=== PATIENT | male | born 1990 | race Two or more races ===

== ENCOUNTER 2025-07-22 01:49 | Emergency (ER) | payer MEDICAID, OTHER ==
[~2025-07-22] VITALS: Ht 162.6 cm; Wt 68.0 kg
[2025-07-22 01:49] VITALS: BP 110/60; PULSE 96; RESP 18; TEMP 98.3; O2SAT 98
--- NOTE | 2025-07-22 03:27 | ED.PDOC ---
History of Present Illness HPI Comments 34-year-old male who came to ER via EMS for alcohol intoxication. Patient is a poor informant. States he called the ambulance because he is intoxicated alcohol. No further information could be taken from him at this time of care Chief Complaint: ETOH Time Seen by MD: 03:26 Reviewed Notes: Nurses Notes Allergies: Coded Allergies: NO KNOWN ALLERGIES (Unverified , 07/22/25) Information Source: Patient Mode of Arrival: EMS Past Medical History PAST MEDICAL HISTORY: Pt Confused Surgical History: Pt Confused Family History Family History: Pt Confused Social History Smoker: Pt Confused Alcohol: Heavy Drugs: Pt Confused Lives In: Pt Confused Unable to Obtain due to: Other (Intoxicated with alcohol) Physical Exam General Appearance: No Apparent Distress, Normal HEENT: Normal ENT Inspection, Pharynx Normal, TMs Normal Neck: Full Range of Motion, Non-Tender, Normal, Normal Inspection Respiratory: Chest Non-Tender, Lungs Clear, No Accessory Muscle Use, No Respiratory Distress, Normal Breath Sounds Cardiovascular: No Edema, No JVD, No Murmur, No Gallop, Normal Peripheral Pulses, Regular Rate/Rhythm Breast Exam: Deferred Gastrointestinal: No Organomegaly, Non Tender, No Pulsatile Mass, Normal Bowel Sounds, Soft Genitalia: Deferred Pelvic: Deferred Rectal: Deferred Extremities: No calf tenderness, Normal capillary refill, Normal inspection, Normal range of motion, Non-tender, No pedal edema Musculoskeletal : Apperance: Normal Neurologic: Alert, stretch machine operator II-XII nml as Tested, No Motor Deficits, Normal Affect, Normal Mood, No Sensory Deficits Cerebellar Function: Normal Reflexes: Normal Skin: Dry, Normal Color, Warm Lymphatic: No Adenopathy Was a procedure done? Was a procedure done?: No Differential Dx Considerations may include: Alcohol intoxication, electrolyte imbalance, dehydration X-Ray, Labs, Meds, VS Vital Signs Date Time Temp Pulse Resp B/P (MAP) Pulse Ox O2 Delivery O2 Flow Rate FiO2 07/22/25 01:49 98.3 96 18 110/60 98 98.3 Lab Test 07/22/25 02:30 Range/Units Plasma/Serum Blood Alcohol 293.3 H <10 mg/dL Time of 1ST Reevaluation: 03:25 Reevaluation 1ST: Unchanged Patient Education/Counseling: Diagnosis, Treatment Family Education/Counseling: No Family Present SEPSIS Sepsis Screen Date sepsis recognized/suspect: Jul 22, 2025 Time Sepsis recognized/suspect: 0149 Recent Procedure: No On Antibiotic Therapy: No Respiratory Rate >20: No Heart Rate >90: No Temp<36 C (96.8 F) or >38.3 C: No SBP <90 or MAP <65 mmHG: No New Acute Mental Status Change: No Is the patient on CPAP, BIPAP,: No Vital Signs Date Time Temp Pulse Resp B/P (MAP) Pulse Ox O2 Delivery O2 Flow Rate FiO2 07/22/25 01:49 98.3 96 18 110/60 98 98.3 Departure 1 Departure Time of Disposition: 05:00 Impression: Primary Impression: Alcohol abuse Additional Impression: Alcohol intoxication Disposition: HOME / SELF CARE / HOMELESS Condition: Stable Discharged With: Self Critical Care Note Critical Care Time?: No Stability Stability form required: No Heart Score Heart Score: Heart Score Response (Comments) Value History N/A 0 EKG N/A 0 Age N/A 0 Risk Factors N/A 0 Troponin N/A 0 Total 0 I personally scribed for ROMERO MCPHERSON MD ([email or web address]) on 07/22/25 at 03:27. Electronically submitted by Praful Mccray ([email or web address]). ROMERO MCPHERSON MD Jul 22, 2025 03:27
== END 2025-07-22 05:00 | disposition left against medical advice (07) ==
LOC: EDBD 01:49 → ER 01:49
DX: F10.129 Alcohol abuse with intoxication, unspecified (principal); F17.200 Nicotine dependence, unspecified, uncomplicated; Y90.9 Presence of alcohol in blood, level not specified
CPT/HCPCS: 36415; 80320